=== PATIENT | male | born 1945 | race Caucasian/White ===

== ENCOUNTER 2017-10-14 10:08 | Outpatient (CLI) | payer OTHER ==
[~2017-10-14 10:08] MED LIST: AMLODIPINE BESYL5 MG; ASA81 MG; CLONAZEPAM1 M1; DICLOFENAC SODI50 MG PO; HYDROCHLOROTHIAZ1 GM; LEVAQUIN750 MG PO; LIPITOR20 MG; MUPIROCIN22 GM TOP
== END 2017-10-14 15:58 | disposition home or self-care (01) ==
LOC: RAD 10:08
DX: M25.562 Pain in left knee (principal)

== ENCOUNTER 2018-04-29 10:13 | Outpatient (CLI) | payer OTHER | END 2018-04-29 10:15 | disposition home or self-care (01) | LOC: SONOGRAMA 10:13 | DX: R10.11 Right upper quadrant pain (principal) ==

== ENCOUNTER → 2018-11-03 14:45 | Outpatient (CLI) | payer OTHER | END | disposition home or self-care (01) | LOC: LAB 14:45 | DX: Z11.3 Encounter for screening for infections with a predominantly sexual mode of transmission (principal) ==

== ENCOUNTER 2020-03-30 09:43 | Outpatient (CLI) | payer OTHER | END 2020-03-30 09:52 | disposition home or self-care (01) | LOC: TOM 09:43 | PROVIDERS: ATTEND Internal Medicine Cardiovascular Disease | DX: G93.89 Other specified disorders of brain (principal); R41.2 Retrograde amnesia ==

== ENCOUNTER → 2020-05-15 09:00 | Outpatient (CLI) | payer OTHER | END | disposition home or self-care (01) | LOC: PPH VACUNA 09:00 | PROVIDERS: ATTEND Emergency Medicine Pediatric Emergency Medicine | DX: Z23 Encounter for immunization (principal) ==

== ENCOUNTER → 2020-06-05 | Outpatient (CLI) | payer OTHER | END | disposition home or self-care (01) | LOC: PPH VACUNA 10:29 | PROVIDERS: ATTEND Emergency Medicine Pediatric Emergency Medicine | DX: Z23 Encounter for immunization (principal) ==

== ENCOUNTER 2020-08-11 10:17 | Outpatient (CLI) | payer OTHER ==
[~2020-08-11 10:17] MED LIST changes: +CATAFLAM50 MG PO
== END 2020-08-11 10:18 | disposition home or self-care (01) ==
LOC: LAB 10:17
PROVIDERS: ATTEND Internal Medicine Hematology & Oncology
DX: D64.89 Other specified anemias (principal); E53.1 Pyridoxine deficiency; D53.1 Other megaloblastic anemias, not elsewhere classified; D80.8 Other immunodeficiencies with predominantly antibody defects; D53.8 Other specified nutritional anemias; D68.8 Other specified coagulation defects; M32.8 Other forms of systemic lupus erythematosus

== ENCOUNTER → 2020-08-14 08:58 | Outpatient (CLI) | payer OTHER | END | disposition home or self-care (01) | LOC: LAB 06:55 | PROVIDERS: ATTEND Internal Medicine Hematology & Oncology | DX: M32.8 Other forms of systemic lupus erythematosus (principal); D64.89 Other specified anemias; P80.8 Other hypothermia of newborn; D53.8 Other specified nutritional anemias; D68.8 Other specified coagulation defects; E53.1 Pyridoxine deficiency; D53.1 Other megaloblastic anemias, not elsewhere classified ==

== ENCOUNTER 2020-08-28 13:32 | Outpatient (CLI) | payer OTHER | END 2020-08-28 13:33 | disposition home or self-care (01) | LOC: LAB 13:32 | PROVIDERS: ATTEND Internal Medicine Cardiovascular Disease | DX: R05 Cough (principal); R06.2 Wheezing; R50.9 Fever, unspecified; D64.0 Hereditary sideroblastic anemia; J11.1 Influenza due to unidentified influenza virus with other respiratory manifestations ==

== ENCOUNTER 2020-09-11 11:35 | Outpatient (CLI) | payer OTHER | END 2020-09-11 11:36 | disposition home or self-care (01) | LOC: LAB 11:35 | PROVIDERS: ATTEND Internal Medicine Hematology & Oncology | DX: C90.00 Multiple myeloma not having achieved remission (principal); D69.6 Thrombocytopenia, unspecified ==

== ENCOUNTER 2020-11-20 10:12 | Outpatient (CLI) | payer OTHER | END 2020-11-20 10:13 | disposition home or self-care (01) | LOC: LAB 10:12 | PROVIDERS: ATTEND Internal Medicine Hematology & Oncology | DX: D46.0 Refractory anemia without ring sideroblasts, so stated (principal); D53.1 Other megaloblastic anemias, not elsewhere classified; D47.2 Monoclonal gammopathy; F10.188 Alcohol abuse with other alcohol-induced disorder ==

== ENCOUNTER 2020-12-28 11:42 | Outpatient (CLI) | payer OTHER | END 2020-12-28 15:00 | disposition home or self-care (01) | LOC: LAB 11:42 | PROVIDERS: ATTEND Internal Medicine Cardiovascular Disease | DX: I10 Essential (primary) hypertension (principal); E11.9 Type 2 diabetes mellitus without complications; E03.8 Other specified hypothyroidism; E78.2 Mixed hyperlipidemia; R00.2 Palpitations; I11.9 Hypertensive heart disease without heart failure ==

== ENCOUNTER → 2021-02-12 10:30 | Outpatient (CLI) | payer OTHER | END | disposition home or self-care (01) | LOC: PPH VACUNA 10:30 | PROVIDERS: ATTEND Emergency Medicine Pediatric Emergency Medicine | DX: Z23 Encounter for immunization (principal) ==

== ENCOUNTER 2021-08-22 12:30 | Outpatient (CLI) | payer OTHER | END 2021-08-22 12:32 | disposition home or self-care (01) | LOC: SONOGRAMA 12:30 | PROVIDERS: ATTEND Internal Medicine Cardiovascular Disease | DX: M12.9 Arthropathy, unspecified (principal) ==

== ENCOUNTER 2021-08-27 08:00 | Outpatient (CLI) | payer OTHER | END 2021-08-27 08:30 | disposition home or self-care (01) | LOC: PPH VACUNA 08:00 | PROVIDERS: ATTEND Emergency Medicine Pediatric Emergency Medicine | DX: Z23 Encounter for immunization (principal) ==

== ENCOUNTER → 2021-10-04 10:54 | Outpatient (CLI) | payer OTHER | END | disposition home or self-care (01) | LOC: LAB 10:54 | PROVIDERS: ATTEND Internal Medicine Cardiovascular Disease | DX: Z12.11 Encounter for screening for malignant neoplasm of colon (principal); E11.9 Type 2 diabetes mellitus without complications; E03.9 Hypothyroidism, unspecified; E78.2 Mixed hyperlipidemia; I10 Essential (primary) hypertension; N40.0 Benign prostatic hyperplasia without lower urinary tract symptoms; B35.1 Tinea unguium; B16.1 Acute hepatitis B with delta-agent without hepatic coma ==

== ENCOUNTER → 2021-10-09 13:20 | Outpatient (CLI) | payer OTHER | END | disposition home or self-care (01) | LOC: LAB 13:20 | PROVIDERS: ATTEND Internal Medicine Cardiovascular Disease | DX: Z12.11 Encounter for screening for malignant neoplasm of colon (principal); I10 Essential (primary) hypertension; E11.9 Type 2 diabetes mellitus without complications; E03.9 Hypothyroidism, unspecified; E78.2 Mixed hyperlipidemia; N40.0 Benign prostatic hyperplasia without lower urinary tract symptoms ==

== ENCOUNTER 2022-01-14 11:00 | Outpatient (CLI) | payer OTHER | END 2022-01-14 11:30 | disposition home or self-care (01) | LOC: RAD 11:00 | PROVIDERS: ATTEND Internal Medicine Rheumatology | DX: M15.8 Other polyosteoarthritis (principal) ==

== ENCOUNTER 2022-03-18 12:24 | Outpatient (CLI) | payer OTHER | END 2022-03-18 12:34 | disposition home or self-care (01) | LOC: PPH VACUNA 12:24 | PROVIDERS: ATTEND Emergency Medicine Pediatric Emergency Medicine | DX: Z23 Encounter for immunization (principal) ==

== ENCOUNTER 2022-06-24 12:25 | Outpatient (CLI) | payer OTHER | END 2022-06-24 12:32 | disposition home or self-care (01) | LOC: RAD 12:25 | PROVIDERS: ATTEND Physical Medicine & Rehabilitation | DX: M79.671 Pain in right foot (principal) ==

== ENCOUNTER 2022-10-07 12:14 | Outpatient (CLI) | payer OTHER | END 2022-10-08 08:43 | disposition home or self-care (01) | LOC: RAD 12:14 | PROVIDERS: ATTEND Internal Medicine Cardiovascular Disease | DX: M12.9 Arthropathy, unspecified (principal) ==

== ENCOUNTER 2022-12-09 13:17 | Outpatient (CLI) | payer OTHER | END 2022-12-09 13:19 | disposition home or self-care (01) | LOC: LAB 13:17 | DX: U07.1 COVID-19 (principal) ==

== ENCOUNTER 2023-06-23 14:03 | Outpatient (CLI) | payer OTHER | END 2023-06-23 14:07 | disposition home or self-care (01) | LOC: RAD 14:03 | PROVIDERS: ATTEND Internal Medicine Cardiovascular Disease | DX: M12.9 Arthropathy, unspecified (principal) ==

== ENCOUNTER 2023-07-02 13:01 | Outpatient (CLI) | payer OTHER ==
[2023-07-02 14:51] LABS: ALBUMIN 4.1 gm/dL (3.4-5.0); BILIRUBIN TOTAL 0.64 mg/dL (0.3-1.2); CALCIUM 9.7 mg/dL (8.5-10.1); CREATININE SERUM 0.79 mg/dL (0.70-1.30); GFR 94.61; GLOBULINA 3.7 G/DL (2.4-3.5); MAGNESIUM 1.7 mg/dL (1.8-2.4); PHOSPHOROUS 3.1 mg/dL (2.5-4.9); POTASSIUM 4.07 mEq/L (3.5-5.1); TOTAL PROTEIN 7.8 gm/dL (6.4-8.2)
== END 2023-07-02 14:22 | disposition home or self-care (01) ==
LOC: LAB 13:01
PROVIDERS: ATTEND Orthopaedic Surgery
DX: E55.9 Vitamin D deficiency, unspecified (principal); M85.9 Disorder of bone density and structure, unspecified; E56.1 Deficiency of vitamin K; E21.3 Hyperparathyroidism, unspecified; E88.89 Other specified metabolic disorders; M81.8 Other osteoporosis without current pathological fracture; N19 Unspecified kidney failure

== ENCOUNTER 2023-07-03 13:18 | Outpatient (CLI) | payer OTHER | END 2023-07-03 13:19 | disposition home or self-care (01) | LOC: NUCLEAR 13:18 | PROVIDERS: ATTEND Orthopaedic Surgery | DX: M81.0 Age-related osteoporosis without current pathological fracture (principal) ==